=== PATIENT | female | born 1980 | race American Indian/Alaskan Native ===

== ENCOUNTER 2020-06-20 22:03 | Emergency (ER) | payer SELFPAY ==
--- NOTE | ~2020-06-20 | XR_ITS ---
XR chest 2V DATE: 06/20/2020 22:38 INDICATION: Left-sided chest pain radiating to left arm for one day. Dizziness for 2 days. TECHNIQUE: PA and lateral views COMPARISON: None FINDINGS: Normal heart size. No hilar or mediastinal enlargement. No pulmonary infiltrate or consolid ation, pleural effusion or pulmonary vascular congestion or pneumothorax. IMPRESSION: No active cardiopulmonary disease Reviewed, dictated and finalized at location A.
--- NOTE | ~2020-06-20 | CT_ITS ---
EXAMINATION: CT abdomen pelvis w con INDICATION: Left lower quadrant pain TECHNIQUE: Computed tomographic images of the abdomen and pelvis were obtained after the administrati on of 100 cc of Omnipaque 350 intravenous contrast. The dose-length product (DLP) was 330.87 mGy-cm. Automated exposure control and iterative reconstruction technique were employed. COMPARISON: None available FINDINGS: Minimal dependent atelectasis is present in the lung bases. The heart size is normal. The l iver, spleen, pancreas, gallbladder, and adrenal glands are normal. The kidneys are unremarkable. No pathologically enlarged abdominal or pelvic lymph nodes are identified. There is no free intraperiton eal gas or evidence of bowel obstruction. The appendix is normal. There is mild bilateral hydroureter which may be due to minimal bladder distention. An IUD is present in the uterus. The arms of the IUD are positioned adjacent to the stem of the IUD in the lower ureter segment rather than in the uterin e fundus. IMPRESSION: 1. No CT correlate for the patient's symptoms. 2. IUD in the uterus with its arms positioned adjacent to the stem of the IUD in the lower uterine se gment rather than in the uterine fundus. Would recommend follow-up with [facility] to discuss effectivene ss in this configuration. Reviewed, dictated and finalized at location A. IMPRESSION: 1. No CT correlate for the patient's symptoms. 2. IUD in the uterus with its arms positioned adjacent to the stem of the IUD i n the lower uterine segment rather than in the uterine fundus. Would recommend follow-up with [facility] to discuss effectiveness in this configuration.
[2020-06-20 22:10] VITALS: BP 125/93; PULSE 89; RESP 21; O2SAT 99
--- NOTE | 2020-06-20 22:15 | ECG_ITS ---
Measurements Intervals [place] Rate: 78 P: 39 MD: 144 QRS: -9 QRSD: 84 T: -5 QT: 369 QTc: 422 Interpretive Statements SINUS RHYTHM VOLTAGE CRITERIA FOR LVH NONSPECIFIC ST ELEVATION IN ANT/HIGH LAT LEADS BORDERLINE T WAVE ABNORMALITY- INFERIOR LEADS BORDERLINE ECG Electronically Signed On 06-21-2020 7:08:52 CDT by Nicholas Devine D.O.
[2020-06-20 22:28] LABS: Basophils Percent Auto 0.3 % (0.2-1.2); Eosinophils Absolute Auto 0.2 K/mm3 (0-0.3); Eosinophils Percent Auto 2.7 % (0-4.4); Hemoglobin 13.1 g/dL (12.0-15.0); Immature Granulocyte Absolute 0.03 K/mm3 (0.00-0.031); Immature Granulocyte Percent A 0.3 % (0-0.5); Lymphocytes Absolute Auto 2.55 K/mm3 (0.9-3.2); Lymphocytes Percent Auto 28.4 % (18.3-44.2); Mean Corpuscular HGB Conc 34.5 g/dl (32-36); Mean Corpuscular Volume 84.3 fl (80-100); Mean Platelet Volume 8.5 fl (7.4-10.4); Monocytes Absolute Auto 0.4 K/mm3 (0.1-0.6); Monocytes Percent Auto 4.7 % (2.6-8.5); Neutrophils Absolute Auto 5.7 K/mm3 (1.3-6.7); Neutrophils Percent Auto 63.6 % (45.5-73.1); Platelet Count Result 358 k/mm3 (150-375); Red Blood Count 4.51 M/mm3 (4.2-5.4); Red Cell Distribution Width 11.9 % (11.5-14.5)
[2020-06-20 22:37] LABS: Partial Thromboplastin Time 31.2 SECONDS (22.3-36.8)
[2020-06-20 22:39] LABS: Anion Gap 11 mmol/L (8-16); Blood Urea Nitrogen 9 mg/dL (7-17); Calcium 9.1 mg/dL (8.4-10.2); Carbon Dioxide 24 mmol/L (22-30); Chloride 103 mmol/L (98-107); Estimated Glomerular Filt Rate > 60; Glucose 149 mg/dL (65-105); Potassium 3.8 mmol/L (3.4-5.0); Sodium 138 mmol/L (137-145)
[2020-06-20 22:50] LABS: Troponin I < 0.012 ng/mL (0.000-0.034)
[2020-06-20 22:53] VITALS: BP 112/82; PULSE 77; RESP 18; O2SAT 98
--- NOTE | 2020-06-21 00:28 | ED.CHESTPAIN ---
HPI - Chest Pain General Chief Complaint: Chest Pain Stated Complaint: chest pain Time Seen by Provider: 06/20/20 22:20 History of Present Illness HPI narrative: Patient is a 39-year-old female who presents ER with several issues. Patient reports tonight while eating she developed some central chest discomfort and then felt some numbness down her left arm. It was brief. No runny nose/sore throat/productive cough. No previous history of cardiac disease. She reports she has been feeling slightly fatigued for the last 3 days. No known sick contacts. No loss of smell or taste. Related Data Home Medications Medication Instructions Recorded Confirmed No Home Medications 06/20/20 06/20/20 Allergies Allergy/AdvReac Type Severity Reaction Status Date / Time No Known Allergies Allergy Verified 06/20/20 22:14 Review of Systems Review of Systems: All systems reviewed & are unremarkable except as noted in HPI and below Constitutional: Constitutional: Denies chills, Reports fatigue and Denies fever(s) ENT: Denies nasal congestion and Denies sore throat Cardiovascular: Cardiovascular: Reports chest pain and Reports radiating jaw, neck or arm pain Respiratory: Respiratory: Denies cough, Denies dyspnea and Denies wheezing Gastrointestinal: Gastrointestinal: Reports abdominal pain, Reports nausea and Denies vomiting Neurologic: Denies focal weakness and Reports numbness (Intermittent numbness of the arms at night starting her hands and wrists) PMFSH Past Medical History Medical History (Updated 06/21/20 @ 03:12 by David Melvin MD) Healthy female adult Surgical History Surgical History (Updated 06/21/20 @ 03:09 by David Melvin MD) No pertinent past surgical history Social History Social History (Updated 06/21/20 @ 03:09 by David Melvin MD) Smoking status: Never smoker Gender identity (if verbalized by the patient): Female Exam Narrative: Exam Narrative: GENERAL: Well-appearing, well-nourished, and in no acute distress. HEAD: Normocephalic, atraumatic. ENT: Mucous membranes moist. CHEST: Clear to auscultation. No respiratory distress. HEART: Regular rate and rhythm. Normal peripheral pulses. ABDOMEN: Soft, mild tenderness palpation left lower quadrant, nondistended. EXTREMITIES: Normal range of motion. No edema. Positive carpal tunnel compression test on the right. SKIN: Warm, dry, no rash. NEURO: Alert and oriented x3. Course Reevaluation(s) Reevaluation #1: Patient felt weak and flushed. Blood pressure dropped to 82/60. Reevaluation patient has some left lower quadrant tenderness. Will obtain CT scan abdomen pelvis. Patient has no chest pain or chest pressure at this time. Date: 06/21/20 Time: 00:29 Reevaluation #2: Patient resting comfortably. Patient's hypertension rapidly resolved prior to fluid bolusing. Asymptomatic since then. Informed of results. 2 troponins negative. Follow-up with PCP who they state they will contact tomorrow. Date: 06/21/20 Time: 03:11 Vital Signs Vital signs: Vital Signs Pulse Rate 89 06/20/20 22:10 Respiratory Rate 21 H 06/20/20 22:10 Blood Pressure 125/93 H 06/20/20 22:10 Pulse Oximetry 99 06/20/20 22:10 Pulse Rate 71 06/21/20 02:54 Respiratory Rate 18 06/21/20 02:54 Blood Pressure 115/79 06/21/20 02:54 Pulse Oximetry 98 06/21/20 02:54 MDM - Chest Pain Lab Data Result diagrams: 06/20/20 22:21 06/20/20 22:21 Labs: Lab Results 06/20/20 06/20/20 06/20/20 Range/Units 22:21 22:21 22:21 WBC 9.0 (4.5-10.0) K/mm3 RBC 4.51 (4.2-5.4) M/mm3 Hgb 13.1 (12.0-15.0) g/dL Hct 38.0 (37.0-47.0) % MCV 84.3 (80-100) fl MCH 29.0 (26-34) pg MCHC 34.5 (32-36) g/dl RDW 11.9 (11.5-14.5) % Plt Count 358 (150-375) k/mm3 MPV 8.5 (7.4-10.4) fl Immature Gran % (Auto) 0.3 (0-0.5) % Neut % (Auto) 63.6 (45.5-73.1) % Lymph % (Auto) 2
[2020-06-21] MEDS: SODIUM CHLORIDE 0.9% IV 1,000 ML 999 ML IV CONT (00:31)
--- NOTE | 2020-06-21 00:36 | ECG_ITS ---
Measurements Intervals [place] Rate: 73 P: 38 [place]: 126 QRS: 9 QRSD: 86 T: 10 QT: 401 QTc: 442 Interpretive Statements SINUS RHYTHM DELAYED PRECORDIAL R/S TRANSITION BORDERLINE ECG Electronically Signed On 06-21-2020 7:10:16 CDT by Nicholas Devine D.O.
[2020-06-21] MEDS: ASPIRIN 81 MG CHEWABLE TABLET 324 MG PO (00:37)
[2020-06-21 02:09] LABS: Add Urine Microscopic? YES; Appearance Urine Cloudy (Clear); Bacteria Urine Trace /hpf; Bilirubin Urine Negative (Negative); Blood Urine Negative (Negative); Color Urine Yellow (Yellow); Glucose Urine UA Negative (Negative); Ketones Urine Negative (Negative); Leukocyte Esterase Ur 2+ LEU/UL (Negative); Nitrate Urine Negative (Negative); Protein Urine Negative (Negative); RBC Urine 0-2 /hpf (0-2); Squamous Epithelial Cell Urine Many /hpf (Few); Urobilinogen Urine Negative mg/dL (<2.0)
[2020-06-21 02:21] LABS: Troponin I < 0.012 ng/mL (0.000-0.034)
[2020-06-21 02:54] VITALS: BP 115/79; PULSE 71; RESP 18; O2SAT 98
[2020-06-21 03:37] VITALS: BP 116/74; PULSE 78; RESP 18; O2SAT 98
--- NOTE | 2020-06-29 21:45 | PC.NURSE ---
LATE ENTRY This note is being entered to document information to the patient's record. The following information was omitted on []06-21-20, by [olga clay rn- [id number] stop time is 0].
== END 2020-06-21 03:47 | disposition home or self-care (01) ==
PROVIDERS: Emergency Provider Emergency Medicine
DX: R07.89 Other chest pain (principal); G56.01 Carpal tunnel syndrome, right upper limb; R94.31 Abnormal electrocardiogram [ECG] [EKG]
CPT/HCPCS: 36415; 71046; 74177; 80048; 81001; 81025; 84484; 85025; 85610; 85730; 93005; 96360; 99284; A9270; J7030; Q9967